=== PATIENT | female | born 1965 | race Caucasian/White ===

== ENCOUNTER → 2016-08-06 | Outpatient (CLI) | payer BC ==
[~2016-08-06] MED LIST: ADVIN25050 INH; DVNUNK; MULT-506 PO
[2016-08-06 11:13] LABS: HEMATOCRIT 39.6 % (37-47); MEAN CELL VOLUME 94.3 fL (80-100); MEAN CORPUSCULAR HEMOGLOBIN 31.9 pg (25-34); MEAN CORPUSCULAR HGB CONC 33.8 g/dl (32-36); MEAN PLATELET VOLUME 9.9 fL (7.4-10.4); PLATELET COUNT 287 K/uL (130-400); WHITE BLOOD COUNT 11.08 K/uL (4.8-10.8)
[2016-08-06 12:22] LABS: BLOOD UREA NITROGEN 19 mg/dl (7-18); BUN/CREATININE RATIO 22.3 (10-20); CALCIUM 9.5 mg/dl (8.5-10.1); CARBON DIOXIDE 22 mmol/L (21-32); CHLORIDE 103 mmol/L (98-107); CHOLESTEROL 186 mg/dl (0-200); CREATININE 0.85 mg/dl (0.60-1.20); GLUCOSE 104 mg/dl (70-99); POTASSIUM 3.8 mmol/L (3.5-5.1); SODIUM 138 mmol/L (136-145)
[2016-08-06 12:35] LABS: HDL CHOLESTEROL 94 mg/dl; LDL CHOLESTEROL CALCULATED 82 mg/dl; TRIGLYCERIDES 51 mg/dl (0-150); VERY LOW DENSITY LIPOPROT CALC 10 mg/dl
== END | disposition home or self-care (01) ==
LOC: C.LABBC 08:42
PROVIDERS: ATTEND Internal Medicine Geriatric Medicine
DX: J45.909 Unspecified asthma, uncomplicated (principal); I10 Essential (primary) hypertension

== ENCOUNTER → 2017-01-10 | Outpatient (CLI) | payer BC ==
--- NOTE | 2017-01-12 12:34 | MAMMOGRAPHY REPORT ---
BILATERAL DIGITAL SCREENING MAMMOGRAM TOMOSYNTHESIS WITH CAD: 01/10/2017 CLINICAL HISTORY: Routine screening. Patient has no complaints. TECHNIQUE: Breast tomosynthesis in addition to standard 2D mammography was performed. Current study was also evaluated with a Computer Aided Detection (CAD) system. COMPARISON: Comparison is made to exams dated: 01/08/2016 mammogram, 01/06/2015 mammogram, 01/03/2014 m ammogram, 12/21/2012 mammogram, 12/04/2010 mammogram, and 11/28/2009 mammogram - [facility] enter. BREAST COMPOSITION: The tissue of both breasts is heterogeneously dense, which may obscure small mas ses. FINDINGS: There are stable asymmetries bilaterally. Benign-appearing microcalcifications. No suspi cious mass, architectural distortion or cluster of suspicious microcalcifications is seen. IMPRESSION: ACR BI-RADS CATEGORY 1: NEGATIVE There is no mammographic evidence of malignancy. A 1 year screening mammogram is recommended. The pa tient will receive written notification of the results. Approximately 10% of breast cancers are not detected with mammography. A negative mammographic report should not delay biopsy if a clinically suggestive mass is present. Katherine Liu M.D. ay/:01/10/2017 16:32:40 Costume Seamstress: Katie SMITH(Sridhar)(Ulises)(JADEN), [facility] letter sent: Normal 1/2 BI-RADS Code: ACR BI-RADS Category 1: Negative
== END | disposition home or self-care (01) ==
LOC: C.MAMM 10:44
PROVIDERS: ATTEND Internal Medicine Geriatric Medicine
DX: Z12.31 Encounter for screening mammogram for malignant neoplasm of breast (principal)

== ENCOUNTER → 2017-07-18 | Outpatient (CLI) | payer OTHER | END | disposition home or self-care (01) | LOC: C.PAPS 09:46 | PROVIDERS: ATTEND Obstetrics & Gynecology | DX: Z01.419 Encounter for gynecological examination (general) (routine) without abnormal findings (principal) ==

== ENCOUNTER → 2017-07-18 | Outpatient (CLI) | payer OTHER ==
[2017-07-18 17:56] LABS: BLOOD UREA NITROGEN 16 mg/dl (7-18); CALCIUM 8.9 mg/dl (8.5-10.1); CARBON DIOXIDE 27 mmol/L (21-32); CREATININE 0.69 mg/dl (0.60-1.20); GLUCOSE 80 mg/dl (70-99); POTASSIUM 3.5 mmol/L (3.5-5.1); SODIUM 134 mmol/L (136-145)
== END | disposition home or self-care (01) ==
LOC: C.LAB1850 16:13
PROVIDERS: ATTEND Obstetrics & Gynecology
DX: I10 Essential (primary) hypertension (principal); N83.209 Unspecified ovarian cyst, unspecified side

== ENCOUNTER → 2017-08-22 | Day surgery (SDC) | payer OTHER ==
[2017-08-02 11:04] VITALS: BMI 23.0
--- NOTE | 2017-08-02 11:34 | PAT Medication Instructions ---
Service Date Aug 02, 2017. Current Home Medication List Acetaminophen Tab (Tylenol), 650 MG PO PRN Aspirin (Aspirin Ec), 650 MG PO PRN Estrog Conj/Medryoxyprog Acet (Prempro 0.625MG/2.5MG), 1 TAB PO QAM Fluticasone Prop/Salmeterol (Advair Diskus 250/50 60 Dose), 1 PUFF INH BID Fluticasone Propionate (Nasal) (Flonase Allergy Relief), 1 SPRAY INTNAS PRN Loratadine (Claritin), 10 MG PO QAM Losartan Potassium (Cozaar), 100 MG PO QAM Multivitamin (Multivitamin), 1 TAB PO QAM Rizatriptan Benzoate (Maxalt), 10 MG PO UD PRN for marketing performance analyst Instructions For Your Scheduled Surgery - Check with surgeon for instructions: Estrog Conj/Medryoxyprog Acet (Prempro 0.625MG/2.5MG), 1 TAB PO QAM Aspirin (Aspirin Ec), 650 MG PO PRN - Hold the following medications the morning of surgery: Multivitamin (Multivitamin), 1 TAB PO QAM Losartan Potassium (Cozaar), 100 MG PO QAM Loratadine (Claritin), 10 MG PO QAM - Take the following medications the morning of surgery with a sip of water: Acetaminophen Tab (Tylenol), 650 MG PO PRN (okay to take up to 4 hours prior to surgery if needed) Fluticasone Prop/Salmeterol (Advair Diskus 250/50 60 Dose), 1 PUFF INH BID Fluticasone Propionate (Nasal) (Flonase Allergy Relief), 1 SPRAY INTNAS PRN (if needed) Rizatriptan Benzoate (Maxalt), 10 MG PO UD PRN for RN (if needed) If you have any questions please call us at [phone] or [phone] or [phone]
[2017-08-02 12:21] LABS: BASO % 0.4 %; BASO ABS # 0.04 K/uL (0-0.2); EOS % 0.5 %; EOS ABS # 0.05 K/uL (0-0.5); HEMATOCRIT 38.6 % (37-47); HEMOGLOBIN 13.2 g/dL (12.0-16.0); IG# 0.02 K/uL (0.00-0.02); LYMPH % 26.3 %; LYMPH ABS # 2.54 K/uL (1.2-3.4); MEAN CELL VOLUME 94.8 fL (80-100); MEAN CORPUSCULAR HEMOGLOBIN 32.4 pg (25-34); MEAN CORPUSCULAR HGB CONC 34.2 g/dl (32-36); MEAN PLATELET VOLUME 9.5 fL (7.4-10.4); MONO % 6.3 %; MONO ABS # 0.61 K/uL (0.11-0.59); NEUT % 66.3 %; NEUT ABS # 6.41 K/uL (1.4-6.5); PLATELET COUNT 258 K/uL (130-400); RED CELL DISTRIBUTION WIDTH CV 12.5 % (11.5-14.5); WHITE BLOOD COUNT 9.67 K/uL (4.8-10.8)
--- NOTE | 2017-08-02 12:51 | DIAGNOSTIC IMAGING REPORT ---
CHEST 2 VIEWS ROUTINE HISTORY: Preop. COMPARISON: Chest 09/03/2015. FINDINGS: The lungs are clear. Cardiac silhouette is normal in size. No pleural effusions. No pneumothorax. IMPRESSION: No acute process. Electronically signed by: Jamil Mendoza M.D. 08/02/2017 12:50 PM Dictated Date/Time: 08/02/2017 12:49 PM
[~2017-08-22] VITALS: Ht 167.6 cm; Wt 66.2 kg
[~2017-08-22] MED LIST changes: +ACET-1693 PO; +ACETAMINOPHEN 1000 MG/100 ML IV IV ONE; +ADVIN25/60 INH; -ADVIN25050 INH; +ASPI325T39 PO; +ATROPINE SULFATE 0.1 MG/ML 5ML SYR IV PRN; +BUPIVACAINE 0.5 % 5 MG/1 ML MPF 30ML VIAL ONE; +CLR10 PO; +CONJ.6255 PO; +DEXAMETHASONE SOD INJ 4 MG/ML VIAL ONE; -DVNUNK; +EpHEDrine SULFATE INJ 50 MG/ML AMP IV PRN; +FENTANYL CITRATE INJ 50 MCG/1 ML 2 ML VIAL IV PRN; +FENTANYL CITRATE INJ 50 MCG/1 ML 2 ML VIAL ONE; +FLUT0.15 INTNAS; +GLYCOPYRROLATE INJ 0.2 MG/ML VIAL ONE; +HYDROmorphone INJ 1 MG/ML SYR IV PRN; +LABETALOL HCL IV 5 MG/ML 20ML IV PRN; +LACTATED RINGER'S 1000ML 1,000 ML IV SCH; +LIDOCAINE HCL 2% 2 ML VIAL (20MG/ML) ONE; +LOSA1TAB38 PO; +MEPERIDINE HCL 25 MG/ML CARP IV PRN; +METHYLENE BLUE 0.5% 10 ML VIAL ONE; +MIDAZOLAM HCL 1 MG/ML 2ML VIAL ONE; +NEOSTIGMINE METHYLSULFATE 5 MG/5 ML SYR ONE; +ONDANSETRON INJ 2 MG/ML 2 ML VIAL IV PRN; +ONDANSETRON INJ 2 MG/ML 2 ML VIAL ONE; +OXYC-57 PO; +PROPOFOL IV EMULSION 10 MG/ML 20 ML VIAL IV ONE; +RIZA10TA18 PO; +ROCURONIUM BROMIDE 10 MG/ML 5 ML VIAL IV ONE; +SODIUM CHLORIDE 0.9% 1000ML 1,000 ML IV SCH
[2017-08-22 12:04] VITALS: BP 151/93; PULSE 74; TEMP 36.5; O2SAT 98; Ht 167.6 cm; Wt 66.2 kg
--- NOTE | 2017-08-22 13:33 | History & Physical Bridge Note ---
H&P Re-Evaluation Bridge Note: I have examined the patient, reviewed the History & Physical and in the interval since the performance of the History & Physical I have noted the following changes of clinical significance: No changes noted
--- NOTE | 2017-08-22 16:03 | [facility] Post Operative Brief Note ---
Immediate Operative Summary Operative Date Aug 22, 2017. Pre-Operative Diagnosis Ovarian cyst, family history of ovarian cancer Post-Operative Diagnosis Ovarian cyst, family history of ovarian cancer Procedure(s) Performed Robotic Assisted Laparoscopic Bilateral Salpingo-Oophorectomy Surgeon Dr. Blair Horse Riding Coach Or Instructor Surgeon(s) None Estimated Blood Loss 5ml Findings Consistent with Post-Op Diagnosis Specimens a. bilateral fallopian tubes and ovaries Drains None Anesthesia Type General Complication(s) none Disposition Accompanied Pt To Recover: no Disposition: Recovery Room / PACU
--- NOTE | 2017-08-22 16:04 | Discharge Instructions ---
Discharge Instructions Date of Service Aug 22, 2017. Admission Reason for Admission: Cyst Of Ovary, High Risk Of Ovarian Cancer Discharge Discharge Diagnosis / Problem: Ovarian cyst Discharge Goals Goal(s): Routine recovery after surgery Activity Recommendations Activity Limitations: per Instructions/Follow-up section . Instructions / Follow-Up Instructions / Follow-Up ACTIVITY RECOMMENDATIONS: * Rest the first 2-3 days. You should be back to your normal activity levels by day 3. * No heavy lifting for 2 weeks. * No intercourse, tampons or douching for 1-2 weeks. * You may shower the next day. * Do not drive anytime that you are taking narcotic pain medicines. RETURN TO SCHOOL/WORK: * May return to school or work after 2-3 days. DIET: Nausea may occur in the immediate post-operative period. If so, take clear liquids such as tea, bouillon, apple juice until all nausea has subsided, then resume usual diet. MEDICATIONS: Resume previous medications unless instructed otherwise by your surgeon. Ibuprofen 200mg 2-3 tablets every 4-6 hours as needed -- OR -- Aleve 2 tablets every 8-12 hours as needed for post-operative discomfort Medications are over the counter. Tylenol may be used if above medications are contraindicated or not preferred. Medication should be taken with food or milk. Do not take on an empty stomach. SPECIAL CARE INSTRUCTIONS: * Check temperature twice daily for one week. report any elevation over 101 degrees. * You may experience some vagina spotting and/or bleeding. This is normal for 1 -2 weeks and should not be heavier than a normal period. If it is unusual in amount, call your physician. * Post-operative discomfort may consist of a sore throat, a "bloated" feeling and pain in the shoulders. these are normal symptoms, which usually only last for 2-3 days. * Remove band-aids tomorrow and shower. There is no need to replace band-aids unless there is drainage or discomfort. FOLLOW UP VISIT: Call your doctor's office for a post-operative 2 week visit if not already scheduled. Current Hospital Diet Patient's current hospital diet: Discharge Diet Recommended Diet: Regular Diet Procedures Procedures Performed: Robotic Assisted Laparoscopic Bilateral Salpingo-Oophorectomy Pending Studies Studies pending at discharge: no Medical Emergencies . Who to Call and When: Medical Emergencies: If at any time you feel your situation is an emergency, please call 911 immediately. . Non-Emergent Contact Non-Emergency issues call your: Last Repairer Helper . . "Provider Documentation" section prepared by Donnell Blair. . VTE Core Measure Inpt VTE Proph given/why not?: Alban Navarro, ABIODUN's
--- NOTE | 2017-08-22 16:39 | Anesthesiology Progress Note ---
Anesthesia Post Op Note Date & Time Aug 22, 2017 at 16:38 Vital Signs Pain Intensity: 3 Vital Signs Past 12 Hours Date Time Temp Pulse Resp B/P (MAP) Pulse Ox O2 Delivery O2 Flow Rate FiO2 08/22/17 16:32 55 18 08/22/17 16:32 54 18 100 08/22/17 16:31 140/93 08/22/17 16:27 59 18 99 08/22/17 16:27 59 18 08/22/17 16:26 55 15 142/92 08/22/17 16:26 15 08/22/17 16:21 56 18 148/85 100 08/22/17 16:21 57 18 08/22/17 16:16 17 08/22/17 16:16 62 17 137/91 08/22/17 16:12 136/89 08/22/17 16:11 36.1 64 16 136/89 100 Oxymask 10 08/22/17 12:04 36.5 74 16 151/93 (112) 98 Room Air Notes Mental Status: alert / awake / arousable, participated in evaluation Pt Amnestic to Procedure: Yes Nausea / Vomiting: adequately controlled Pain: adequately controlled Airway Patency, RR, SpO2: stable & adequate BP & HR: stable & adequate Hydration State: stable & adequate Anesthetic Complications: no major complications apparent
[2017-08-22 16:47] VITALS: TEMP 36.4
--- NOTE | 2017-08-22 16:56 | OPERATIVE REPORT ---
DATE OF OPERATION: 08/22/2017 PREOPERATIVE DIAGNOSES: Ovarian cyst, family history of ovarian cancer. POSTOPERATIVE DIAGNOSES: Same. PROCEDURE: Robotically assisted bilateral salpingectomy-oophorectomy, laparoscopic. SURGEON: Dr. Blair. YIELD ENGINEER: None. ESTIMATED BLOOD LOSS: 5 mL. FINDINGS: Consistent with postop diagnoses. SPECIMENS: Bilateral fallopian tubes and ovaries. ANESTHETIC: General. COMPLICATIONS: None. COMPLICATIONS: None. DISPOSITION: Recovery room. DESCRIPTION OF PROCEDURE: The patient was given general anesthetic, prepped and draped in dorsal lithotomy position. No preoperative antibiotic was indicated. A cervical acorn device attached to her cervix to manipulate the uterus and a Graves catheter placed in her bladder, gloves changed and a subumbilical incision made with scalpel using direct cutdown technique. We the subcutaneous fat, cut through the fascia, split the rectus muscles and entered the peritoneal cavity without difficulty. Blunt-tipped Jack trocar placed, balloon inflated to stabilize the port and then CO2 gas used to insufflate the abdomen. FINDINGS: Upper abdomen normal. Using a 10 mm laparoscope, we saw no sign of visceral organ injury. There were some flimsy adhesions of the right ovary to the right cul-de-sac area. Otherwise, there was nothing suspicious but neither ovary. A small cyst noted on the right side. Prior bilateral tubal ligation and the proximal and distal ends of the tubes appeared normal. Two robotic ports placed on left and right under direct visualization. Robot docked. Arm #1 was monopolar noe, arm #2 the bipolar [place]. The procedure was begun by identifying the location of both ureters. These coursed in the normal path and we then coagulated the blood supply proximal to the ovary with the bipolar [place] staying away from the left ureter and then cut this with monopolar noe, same process at the distal end of the ovary as well. There was a small nub of fallopian tube that was also removed in a similar fashion. These were placed on top of the uterus and the anterior cul-de-sac for safe keeping same process which repeated on the right, stayed well clear of the right ureter, coagulated the blood supply proximal and then distal to the right ovary and then removed. At this stage, we undocked the robot removed. Instruments removed. We then placed a 5 mm scope through one of the robotic ports, 10 mm bag through the umbilical incision port and then all 3 specimens were placed in the bag to adnexa and one small piece of proximal left fallopian tube. The bag was then removed through the umbilicus and specimens were removed. After inspecting the area, hemostasis was excellent. Both ureters peristalsing normally. Ports removed, gas allowed to escape. Incisions injected with 0.5% Marcaine. Fascia closed with 0 Vicryl, 4-0 subcuticular Monocryl closures and Dermabond. Graves catheter removed as were the vaginal and cervical instruments. Urine was clear at the end of the procedure. I attest to the content of the Intraoperative Record and any orders documented therein. Any exception s are noted below.
[2017-08-22 17:27] VITALS: BP 127/77; PULSE 58; O2SAT 99
[2017-08-22 17:51] VITALS: BP 135/81; PULSE 61; O2SAT 98
== END | disposition home or self-care (01) ==
LOC: C.ACU 11:28
PROVIDERS: ATTEND Obstetrics & Gynecology
DX: N83.201 Unspecified ovarian cyst, right side (principal); J45.909 Unspecified asthma, uncomplicated; I10 Essential (primary) hypertension; Z80.41 Family history of malignant neoplasm of ovary; Z82.49 Family history of ischemic heart disease and other diseases of the circulatory system; Z79.899 Other long term (current) drug therapy
CPT/HCPCS: 58661; S2900